=== PATIENT | male | born 1970 | race Caucasian/White ===

== ENCOUNTER 2016-11-12 02:28 | Inpatient (IN) | payer BC, OTHER ==
[~2016-11-12] VITALS: Ht 188 cm; Wt 114.5 kg
[2016-11-12] VITALS (45 sets, daily range): BP systolic 100–132; RESP 12–24; TEMP 97.9–98.4; Ht 188 cm; Wt 114.5 kg
[2016-11-12] MEDS ORDERED: MORPHINE 4 MG/ML SYR ONE (02:49)
[2016-11-12] MEDS ORDERED: ASPIRIN 81 MG CHEW TAB ONE (03:56)
[2016-11-12] MEDS ORDERED: Atorvastatin 40 MG TAB ONE (03:56)
[2016-11-12] MEDS ORDERED: [UNRECOGNIZED DRUG - REMARK] IV ONE (04:30)
[2016-11-12] MEDS ORDERED: EPTIFIBATIDE IV SCH (04:30)
[2016-11-12] MEDS ORDERED: [UNRECOGNIZED DRUG - OTHER] IV SCH (04:30)
[2016-11-12] MEDS ORDERED: ADMIX IV ONE (04:30)
[2016-11-12] MEDS ORDERED: EPTIFIBATIDE IV ONE (04:30)
[2016-11-12] MEDS ORDERED: LORAZEPAM 0.5 MG TAB PO PRN (05:15)
[2016-11-12] MEDS ORDERED: PROMETHAZINE 25 MG/ML VIAL IV PRN (05:15)
[2016-11-12] MEDS ORDERED: NITROGLYCERIN SL 0.4 MG TAB SL PRN (05:15)
[2016-11-12] MEDS ORDERED: OXYCODONE/APAP 5/325 TAB PO PRN (05:15)
[2016-11-12] MEDS ORDERED: TEMAZEPAM 15 MG CAP PO PRN (05:15)
[2016-11-12] MEDS ORDERED: TEMAZEPAM 7.5 MG CAP PO PRN (05:15)
[2016-11-12] MEDS: TICAGRELOR 90 MG TAB PO SCH ×2 (09:19→20:09)
[2016-11-12] MEDS: ASPIRIN 81 MG CHEW TAB PO SCH (09:19)
[2016-11-12] MEDS ORDERED: MEPERIDINE 50 MG/ML ONE (14:19)
[2016-11-12] MEDS ORDERED: FENTANYL 100 MCG/2 ML AMP ONE (14:19)
[2016-11-12] MEDS ORDERED: LIDOCAINE 2% 20 ML ONE (14:19)
[2016-11-12] MEDS ORDERED: MIDAZOLAM 2 MG/2 ML INJ ONE (14:19)
[2016-11-12] MEDS ORDERED: TICAGRELOR 90 MG TAB ONE (14:19)
[2016-11-12] MEDS ORDERED: MISSING DOSE XX ONE (18:15)
[2016-11-12] MEDS: ACETAMINOPHEN 325 MG TAB PO PRN (18:29)
[2016-11-12] MEDS: ESCITALOPRAM 10 MG TAB PO SCH (18:30)
[2016-11-12] MEDS: Atorvastatin 40 MG TAB PO SCH (20:09)
[2016-11-13] VITALS (23 sets, daily range): BP systolic 109–143; RESP 12–24; TEMP 97.7–99.2
[2016-11-13] MEDS: LEVOTHYROXINE 0.137 MG TAB PO SCH (06:13)
[2016-11-13] MEDS: ESCITALOPRAM 10 MG TAB PO SCH (08:34)
[2016-11-13] MEDS: TICAGRELOR 90 MG TAB PO SCH ×2 (08:34→20:11)
[2016-11-13] MEDS: ASPIRIN 81 MG CHEW TAB PO SCH (08:34)
[2016-11-13] MEDS: ENOXAPARIN 120 MG/0.8 ML SYR SUBQ SCH (12:50)
[2016-11-13] MEDS: ACETAMINOPHEN 325 MG TAB PO PRN (14:28)
[2016-11-13] MEDS ORDERED: ALU/MAG/SIM 30 ML UDC PO PRN (18:35)
[2016-11-13] MEDS: DOCUSATE SOD 100 MG CAP PO SCH (20:11)
[2016-11-13] MEDS: Carvedilol 3.125 MG TAB PO SCH ×2 (20:11→21:38)
[2016-11-13] MEDS: Atorvastatin 40 MG TAB PO SCH (20:11)
[2016-11-14] VITALS (22 sets, daily range): BP systolic 103–140; RESP 15–31; TEMP 97.2–98.4
[2016-11-14] MEDS: ENOXAPARIN 120 MG/0.8 ML SYR SUBQ SCH ×3 (00:13→23:59)
[2016-11-14] MEDS: LEVOTHYROXINE 0.137 MG TAB PO SCH (05:59)
[2016-11-14] MEDS: ESCITALOPRAM 10 MG TAB PO SCH (09:07)
[2016-11-14] MEDS: DOCUSATE SOD 100 MG CAP PO SCH ×2 (09:08→20:22)
[2016-11-14] MEDS: ASPIRIN 81 MG CHEW TAB PO SCH (09:08)
[2016-11-14] MEDS: TICAGRELOR 90 MG TAB PO SCH ×2 (09:08→20:23)
[2016-11-14] MEDS: Carvedilol 3.125 MG TAB PO SCH ×2 (09:10→20:22)
[2016-11-14] MEDS: Atorvastatin 40 MG TAB PO SCH (20:22)
[2016-11-15] VITALS (15 sets, daily range): BP systolic 103–139; RESP 9–21; TEMP 97.8–98.9
[2016-11-15] MEDS: LEVOTHYROXINE 0.137 MG TAB PO SCH (06:17)
[2016-11-15] MEDS: ASPIRIN 81 MG CHEW TAB PO SCH (08:33)
[2016-11-15] MEDS: DOCUSATE SOD 100 MG CAP PO SCH ×2 (08:33→20:28)
[2016-11-15] MEDS: Carvedilol 3.125 MG TAB PO SCH ×3 (08:33→20:45)
[2016-11-15] MEDS: TICAGRELOR 90 MG TAB PO SCH ×2 (08:33→20:27)
[2016-11-15] MEDS: ESCITALOPRAM 10 MG TAB PO SCH (08:33)
[2016-11-15] MEDS: ENOXAPARIN 120 MG/0.8 ML SYR SUBQ SCH (12:40)
[2016-11-15] MEDS: NICOTINE 14 MG/24 HR TDSY TRANSDERM SCH ×2 (17:29→18:25)
[2016-11-15] MEDS: ACETAMINOPHEN 325 MG TAB PO PRN (18:24)
[2016-11-15] MEDS: Atorvastatin 40 MG TAB PO SCH (20:28)
[2016-11-16 02:56] VITALS: BP_SYST 94; RESP 18; TEMP 98.9
[2016-11-16] MEDS: LEVOTHYROXINE 0.137 MG TAB PO SCH (05:51)
[2016-11-16 07:29] VITALS: BP_SYST 117; RESP 18; TEMP 97.9
[2016-11-16] MEDS: NICOTINE 14 MG/24 HR TDSY TRANSDERM SCH (08:11)
[2016-11-16] MEDS: TICAGRELOR 90 MG TAB PO SCH (08:12)
[2016-11-16] MEDS: ASPIRIN 81 MG CHEW TAB PO SCH (08:12)
[2016-11-16] MEDS: DOCUSATE SOD 100 MG CAP PO SCH (08:12)
[2016-11-16] MEDS: ESCITALOPRAM 10 MG TAB PO SCH (08:12)
[2016-11-16] MEDS: Carvedilol 3.125 MG TAB PO SCH (08:12)
[2016-11-16] MEDS ORDERED: LISINOPRIL 10 MG TAB PO SCH (09:00)
[2016-11-16 11:21] VITALS: BP_SYST 118; RESP 18; TEMP 97.8
[2016-11-16 13:22] VITALS: BP_SYST 118; RESP 18; TEMP 97.8
== END 2016-11-16 14:01 | disposition home or self-care (01) | DRG 251 ==
LOC: CANRESERV → ENRESERVDT → ENRESERVTM → ER 02:28 → ENPENDDIS 05:11 → EMR 05:11 → CCU 06:34 → PCU2 11-15 10:34
PROVIDERS: ADMIT Internal Medicine Cardiovascular Disease; ATTEND Internal Medicine Cardiovascular Disease
PROC: 4A023N7 Measurement of Cardiac Sampling and Pressure, Left Heart, Percutaneous Approach (ICD-10-PCS; principal; 2016-11-12)
PROC: 02703ZZ Dilation of Coronary Artery, One Artery, Percutaneous Approach (ICD-10-PCS; 2016-11-12)
PROC: 02C03ZZ Extirpation of Matter from Coronary Artery, One Artery, Percutaneous Approach (ICD-10-PCS; 2016-11-12)
PROC: B2111ZZ Fluoroscopy of Multiple Coronary Arteries using Low Osmolar Contrast (ICD-10-PCS; 2016-11-12)
PROC: B2151ZZ Fluoroscopy of Left Heart using Low Osmolar Contrast (ICD-10-PCS; 2016-11-12)
DX: I21.19 ST elevation (STEMI) myocardial infarction involving other coronary artery of inferior wall (principal); I97.630 Postprocedural hematoma of a circulatory system organ or structure following a cardiac catheterization; I10 Essential (primary) hypertension; E03.9 Hypothyroidism, unspecified; I25.10 Atherosclerotic heart disease of native coronary artery without angina pectoris
CPT/HCPCS: 36415; 71010; 80048; 80053; 80061; 82550; 82553; 83735; 84484; 85014; 85018; 85025; 85347; 85610; 85730; 92941; 92973; 93005; 93306; 93458; 94799; 96361; 96374